=== PATIENT | female | born 1985 | race Caucasian/White ===

== ENCOUNTER 2016-05-26 10:47 | Emergency (ER) | payer OTHER ==
[~2016-05-26] VITALS: Ht 162.6 cm; Wt 104.3 kg
[2016-05-26 10:53] VITALS: BP 150/75
--- NOTE | 2016-05-26 10:59 | NUR ---
Patient ambulated to bed 4 after providing a urine specimen. RN evaluating patient at bedside.
--- NOTE | 2016-05-26 11:04 | NUR ---
PATIENT PRESENTS TO ED DUE TO BURNING, FREQUENCY, RETENTION, SINCE THIS AM. HX HYPOTHYROIDISM. DENIES DIARRHEA, BUT WITH VOMITTING AND NAUSEA WITH BACK PAIND. SKIN IS PINK/WARM/DRY; AAOX4 WITH EVEN AND STEADY GAIT; LUNGS CLEAR BL; HR EVEN AND REGULAR; PT DENIES ANY FEVER, CP, SOB, OR COUGH AT THIS TIME; PATIENT STATES PAIN OF 9/10 AT THIS TIME; PATIENT POSITIONED FOR COMFORT; HOB ELEVATED; BEDRAILS UP X2; BED DOWN. ER MD MADE AWARE OF PT STATUS.
--- NOTE | 2016-05-26 11:09 | NUR ---
DR. DOUGLAS AT BEDSIDE AND RELAYED RESULT OF URINE DIPSTICK AND PREG
[2016-05-26] MEDS ORDERED: NACL 0.9% 1,000 ML IV SCH (11:11)
[2016-05-26] MEDS ORDERED: ONDANSETRON 4 MG/2 ML VIAL IVP ONE (11:15)
--- NOTE | 2016-05-26 11:40 | NUR ---
PT REFUSED ZOAN CLAIMED I HAD HEADACHE BEFORE WHEN I TOOK THAT , DR. DOUGLAS AWARE, PT AAO, IVF ONGOING
[2016-05-26] MEDS ORDERED: cefTRIAXone 2,000 MG in DEXTROSE 5% 100 ML IV ONE (12:00)
[2016-05-26] MEDS ORDERED: cefTRIAXone 2,000 MG VIAL ONE (12:07)
--- NOTE | 2016-05-26 12:10 | NUR ---
PT AAO, STARTED ON ROCEPHIN IVF WELL TOLERATED.
--- NOTE | 2016-05-26 12:39 | NUR ---
DR. DOUGLAS AWARE OF THE POTASSIUM LEVEL , NO ORDER, SAID ALSO MAY D/C PT AFTER THE ROCEPHIN ADMINISTRATION.
--- NOTE | 2016-05-26 13:17 | NUR ---
Patient discharged with v/s stable. Written and verbal after care instructions given and explained. Patient alert, oriented and verbalized understanding of instructions. Ambulatory with steady gait. All questions addressed prior to discharge. ID band removed. Patient advised to follow up with PMD. Rx of KEFLEX AND TYLENOL given. Patient educated on indication of medication including possible reaction and side effects. Opportunity to ask questions provided and answered.ENCOURAGED FLUID INTAKE AND PT AGREED WITH IT.
[2016-05-26 13:18] VITALS: BP 145/91
== END 2016-05-26 13:17 | disposition home or self-care (01) ==
LOC: MED 10:47
DX: N39.0 Urinary tract infection, site not specified (principal); R03.0 Elevated blood-pressure reading, without diagnosis of hypertension; E03.9 Hypothyroidism, unspecified
CPT/HCPCS: 36415; 80053; 81002; 81025; 85025; 87040; 96365; 99285; J0696; J2405; J7030

== ENCOUNTER 2016-12-25 11:28 | Emergency (ER) | payer OTHER ==
[~2016-12-25] VITALS: Ht 162.6 cm; Wt 90.7 kg
[2016-12-25 12:00] VITALS: BP 134/82
--- NOTE | 2016-12-25 12:15 | NUR ---
PATIENT LEFT WITHOUT BEING SEEN BY DR. SYED. NO FURTHER CARE PROVIDED FOR PATIENT.
== END 2016-12-25 12:15 | disposition left against medical advice (07) ==
LOC: MED 11:28
DX: M79.606 Pain in leg, unspecified (principal); Z53.21 Procedure and treatment not carried out due to patient leaving prior to being seen by health care provider

== ENCOUNTER 2016-12-26 10:40 | Emergency (ER) | payer OTHER ==
[~2016-12-26] VITALS: Ht 162.6 cm; Wt 90.7 kg
[2016-12-26 10:50] VITALS: BP 132/79
--- NOTE | 2016-12-26 10:53 | NUR ---
Note undone in EDM - 12/26/16 at 1113 by [email or web address] PT REFERRED TO ER PER PCP FOR EVALUATION OF RIGHT LEG PAIN, HX : R/O DVT, HYPOTHYROIDISM.DENIES N/V/D; SKIN IS PINK/WARM/DRY; AAOX4 WITH EVEN AND STEADY GAIT; LUNGS CLEAR BL; PT DENIES ANY FEVER, CP, SOB, OR COUGH AT THIS TIME; PATIENT STATES PAIN OF 6/10 AT THIS TIME; PATIENT POSITIONED FOR COMFORT; HOB ELEVATED; BEDRAILS UP X2; BED DOWN. ER MD MADE AWARE OF PT STATUS.
--- NOTE | 2016-12-26 10:53 | NUR ---
PT REFERRED TO ER PER PCP FOR EVALUATION OF RIGHT LEG PAIN, R/O DVT. HX HYPOTHYROIDISM. PT STATES PAIN RIGHT GROIN X 2 MO AND PAIN RADIATES TO RIGHT LOWER LEG X 2 DAYS . DENIES N/V/D; SKIN IS PINK/WARM/DRY; AAOX4 WITH EVEN AND STEADY GAIT; LUNGS CLEAR BL; HR EVEN AND REGULAR; PT DENIES ANY FEVER, CP, SOB, OR COUGH AT THIS TIME; PATIENT STATES SHARP PAIN OF 6/10 AT THIS TIME; VSS; PATIENT POSITIONED FOR COMFORT; HOB ELEVATED; BEDRAILS UP X2; BED DOWN. ER MD MADE AWARE OF PT STATUS. Addendum: 12/26/16 at 1113 by [email or web address] AT BEDSIDE. Addendum: 12/26/16 at 1140 by [email or web address] PT STS R BACK PAIN & HAD TWICE PERIODS THIS MONTH.
--- NOTE | 2016-12-26 10:55 | NUR ---
Patient ambulated to bed 3. RN evaluating patient at bedside.
--- NOTE | 2016-12-26 11:20 | NUR ---
Maria Ines white in [facility] - 12/26/16 at 1130 by [email or web address] Patient being erevaluated by DR LEWIS at bedside.
--- NOTE | 2016-12-26 11:39 | NUR ---
Patient being evaluated by DR DECKER at bedside.
--- NOTE | 2016-12-26 12:08 | NUR ---
EKG AT BEDSIDE.
--- NOTE | 2016-12-26 12:12 | NUR ---
PT TAKEN TO X RAY VIA W/C, ACCOMPANIED BY ORDER CHECKER.
--- NOTE | 2016-12-26 12:30 | NUR ---
Patient appears to be resting comfortably in bed. Vital Signs within normal limits. Respirations even and unlabored.WILL CONTINUE TO MONITOR.
[2016-12-26 13:42] VITALS: BP 125/67
--- NOTE | 2016-12-26 13:42 | NUR ---
Patient discharged with v/s stable. Written and verbal after care instructions given and explained. Patient verbalized understanding. Ambulatory with steady gait. All questions addressed prior to discharge. Advised to follow up with PMD.
== END 2016-12-26 13:42 | disposition home or self-care (01) ==
LOC: MED 10:40
DX: M54.9 Dorsalgia, unspecified (principal); R10.30 Lower abdominal pain, unspecified; R03.0 Elevated blood-pressure reading, without diagnosis of hypertension; E03.9 Hypothyroidism, unspecified
CPT/HCPCS: 72170; 73502; 93005; 93971; 99284; Q0092; 81002; 81025

== ENCOUNTER 2017-02-01 01:05 | Emergency (ER) | payer OTHER ==
[~2017-02-01] VITALS: Ht 165.1 cm; Wt 90.7 kg
[2017-02-01 01:12] VITALS: BP 142/80
[2017-02-01] MEDS ORDERED: TRAM50TA1 PO (01:23)
[2017-02-01] MEDS ORDERED: LEVO0.2T19 PO (01:23)
[2017-02-01] MEDS ORDERED: ONDA4TAB PO (01:23)
[2017-02-01] MEDS ORDERED: OMEP20TC12 PO (01:23)
--- NOTE | 2017-02-01 01:28 | NUR ---
PT TAKEN TO BED 11.
--- NOTE | 2017-02-01 01:40 | NUR ---
DR SHARP AT BED SIDE.
--- NOTE | 2017-02-01 01:40 | NUR ---
Patient being evaluated by Dr. Márquez at bedside.
[2017-02-01] MEDS ORDERED: NACL 0.9% 1,000 ML IV ONE (01:45)
[2017-02-01] MEDS ORDERED: PROMETHAZINE 25 MG/ML VIAL IVP ONE (01:45)
--- NOTE | 2017-02-01 01:47 | NUR ---
PATIENT PRESENTS TO ED WITH C/O VOMITING AND CHEST PAIN X1 DAY . PMH , THYROID PROBLEM, GALLSTONES, AND ULCER. PT STATES SYMPTOMS STARTED AFTER EATING AT 1700 YESTERDAY . PT TOOK TRAMADOL FOR PAIN. DENIES NAUSEA AT THIS TIME AND STATES HAS BEEN 'THROWING UP EVEYR 7-10 MIN SINCE 5PM YESTERDAY" BS ACTIVE IN ALL 4 Q AND ABDOMEN IS SOFT AND NON TENDER; SKIN IS PINK/WARM/DRY; AAOX4 WITH EVEN AND STEADY GAIT; LUNGS CLEAR BL; HR EVEN AND REGULAR; PT DENIES ANY FEVER,SOB, OR COUGH AT THIS TIME; PATIENT STATES CHEST PAIN OF 7/10 AT THIS TIME AND RADIATES TO THE BACK AND FEELS HEAVY; VSS; PATIENT POSITIONED FOR COMFORT; HOB ELEVATED; BEDRAILS UP X2; BED DOWN. ER MD MADE AWARE OF PT STATUS.
[2017-02-01 01:58] LABS: BASOPHILS # (AUTO) 0.3 K/uL (0.00-0.22); BASOPHILS % (AUTO) 2.6 % (0.0-2.0); EOSINOPHILS # (AUTO) 0.2 K/uL (0-0.4); EOSINOPHILS % (AUTO) 1.5 % (0.0-4.0); HEMATOCRIT 37.6 % (36-48); HEMOGLOBIN 12.5 g/dL (12.0-16.0); LYMPHOCYTES # (AUTO) 1.4 K/uL (2.5-16.5); MEAN CORPUSCULAR HEMOGLOBIN 27 pg (27-31); MEAN CORPUSCULAR HGB CONC 33 g/dL (33-37); MEAN CORPUSCULAR VOLUME 80 fL (80-94); MONOCYTES # (AUTO) 0.1 K/uL (0.8-1.0); MONOCYTES % (AUTO) 1.3 % (1.7-9.3); NEUTROPHILS # (AUTO) 9.3 K/uL (1.8-7.7); NEUTROPHILS % (AUTO) 82.6 % (42.2-75.2); PLATELET COUNT (AUTO) 231 K/uL (140-450); RED BLOOD CELL COUNT(AUTO) 4.72 MIL/uL (4.20-5.40); RED CELL DISTRIBUTION WIDTH 13.9 % (11.6-13.7); WHITE BLOOD COUNT (AUTO) 11.3 K/uL (4.8-10.8)
[2017-02-01 02:07] LABS: ANION GAP 14.7 (8-16); CREATININE 0.7 mg/dL (0.6-1.3); POTASSIUM 3.7 mmol/L (3.5-5.1)
[2017-02-01 02:13] LABS: TOTAL BILIRUBIN 0.4 mg/dL (0.0-1.0)
[2017-02-01 02:52] VITALS: BP 130/76
--- NOTE | 2017-02-01 02:54 | NUR ---
Patient discharged with v/s stable. Written and verbal after care instructions given and explained. Patient alert, oriented and verbalized understanding of instructions. Ambulatory with steady gait. All questions addressed prior to discharge. ID band removed. Patient advised to follow up with PMD. Rx of PHENERGAN given. Patient educated on indication of medication including possible reaction and side effects. Opportunity to ask questions provided and answered.
== END 2017-02-01 02:54 | disposition home or self-care (01) ==
LOC: MED 01:05
DX: R11.2 Nausea with vomiting, unspecified (principal); R07.89 Other chest pain; R10.9 Unspecified abdominal pain; Z79.899 Other long term (current) drug therapy
CPT/HCPCS: 36415; 80053; 81002; 81025; 82948; 83690; 85025; 96361; 96374; 99284; J2550; J7030; 93005

== ENCOUNTER 2017-03-14 17:55 | Emergency (ER) | payer OTHER ==
[~2017-03-14] VITALS: Ht 162.6 cm; Wt 89.8 kg
[~2017-03-14 17:55] MED LIST: LEVO0.2T19 PO; OMEP20TC12 PO; ONDA4TAB PO; TRAM50TA1 PO
[2017-03-14 17:57] VITALS: BP 123/71
--- NOTE | 2017-03-14 19:30 | NUR ---
31 Y/O F W/C/O L SHOULDER/ELBOW PAIN, X LAST NIGHT SOB X THIS AM. PT STATES HAD AN INJURY 4 YEARS AGO AND HAS BEING IN PAIN TO L ARM ON AND OFF. O2 SAT 99% RA, NO S/S OF DISTRESS NOTED. ER MD MADE AWARE.
--- NOTE | 2017-03-14 19:37 | NUR ---
PT TAKEN TO BED 6
--- NOTE | 2017-03-14 21:04 | NUR ---
Dr. Lauren evaluating patient at bedside.
[2017-03-14] MEDS ORDERED: ASPIRIN 325 MG TAB PO ONE (21:35)
[2017-03-14] MEDS ORDERED: KETOROLAC 30 MG/ML VIAL IVP ONE (21:35)
[2017-03-14] MEDS ORDERED: ALPRAZolam 0.5 MG TAB PO SCH (21:35)
[2017-03-14 22:33] LABS: BASOPHILS # (AUTO) 0.3 K/uL (0.00-0.22); BASOPHILS % (AUTO) 4.3 % (0.0-2.0); EOSINOPHILS # (AUTO) 0.2 K/uL (0-0.4); EOSINOPHILS % (AUTO) 2.1 % (0.0-4.0); HEMATOCRIT 37.5 % (36-48); HEMOGLOBIN 12.3 g/dL (12.0-16.0); LYMPHOCYTES % (AUTO) 39.7 % (20.5-51.1); MEAN CORPUSCULAR HEMOGLOBIN 26 pg (27-31); MEAN CORPUSCULAR HGB CONC 33 g/dL (33-37); MEAN CORPUSCULAR VOLUME 79 fL (80-94); MONOCYTES # (AUTO) 0.4 K/uL (0.8-1.0); MONOCYTES % (AUTO) 4.7 % (1.7-9.3); NEUTROPHILS # (AUTO) 3.6 K/uL (1.8-7.7); NEUTROPHILS % (AUTO) 49.2 % (42.2-75.2); PLATELET COUNT (AUTO) 263 K/uL (140-450); RED BLOOD CELL COUNT(AUTO) 4.76 MIL/uL (4.20-5.40); WHITE BLOOD COUNT (AUTO) 7.5 K/uL (4.8-10.8)
--- NOTE | 2017-03-14 22:37 | NUR ---
PT RESTING IN BED, NO S/S OF DISTRESS NOTED. AWATING FOR LAB RESULTS.
[2017-03-14 22:40] LABS: ANION GAP 14.3 (8-16); CARBON DIOXIDE 23.5 mmol/L (21-32); CREATININE 0.7 mg/dL (0.6-1.3); POTASSIUM 3.8 mmol/L (3.5-5.1)
[2017-03-14 22:46] LABS: ALBUMIN 3.7 g/dL (3.4-5.0); TOTAL BILIRUBIN 0.3 mg/dL (0.0-1.0)
[2017-03-14 22:52] LABS: PROTHROMBIN TIME 10.1 secs (10.8-13.4)
[2017-03-14 23:12] VITALS: BP 131/80
--- NOTE | 2017-03-14 23:12 | NUR ---
Patient discharged with v/s stable. Written and verbal after care instructions given and explained. Patient alert, oriented and verbalized understanding of instructions. Ambulatory with steady gait. All questions addressed prior to discharge. ID band removed. Patient advised to follow up with PMD OR RETURN TO ER IF CONDITION WORSENS. Rx of VISTARIL given. Patient educated on indication of medication including possible reaction and side effects. Opportunity to ask questions provided and answered.
== END 2017-03-14 23:12 | disposition home or self-care (01) ==
LOC: MED 17:55
DX: F41.0 Panic disorder [episodic paroxysmal anxiety] (principal); I10 Essential (primary) hypertension; E03.9 Hypothyroidism, unspecified; E11.9 Type 2 diabetes mellitus without complications; E78.5 Hyperlipidemia, unspecified
CPT/HCPCS: 36415; 71010; 80053; 81002; 81025; 83880; 84484; 85025; 85610; 85730; 93005; 96374; 99285; J1885

== ENCOUNTER 2017-05-02 10:39 | Emergency (ER) | payer OTHER ==
[~2017-05-02] VITALS: Ht 162.6 cm; Wt 88.0 kg
[2017-05-02 11:02] VITALS: BP 128/87
--- NOTE | 2017-05-02 11:08 | NUR ---
Patient ambulated to OF#3 a this time.
--- NOTE | 2017-05-02 11:21 | NUR ---
LEFT ELBOW PAIN SINCE LAST NIGHT; DENIES INJURY OR TRAUMA; D/T TO HAVE SURGERY TO LEFT SHOULDER D/T BROKEN BONE PT ALSO C/O HEAVY CHEST AND SOB HX: DM, HIGH CHOLESTEROL, HYPOTHYROID IBUPROFEN 800MG TAKEN AT 0100, NAPROXEN 500MG TAKEN AT 0500, TYLENOL TAKEN AT 0200 PT AAO AT BESIDE,PT CLAIMED I HAVE ALSO EPISODE OF NAUSEA AND VOMITTING
--- NOTE | 2017-05-02 11:29 | NUR ---
PT REQUESTING BS TO BE CHECK
--- NOTE | 2017-05-02 12:06 | NUR ---
DR. DECKER AT BEDSIDE
[2017-05-02] MEDS ORDERED: ONDANSETRON 4 MG ODT PO ONE (12:15)
[2017-05-02] MEDS ORDERED: FAMOTIDINE 20 MG TAB PO ONE (12:15)
[2017-05-02] MEDS ORDERED: KETOROLAC 30 MG/ML VIAL IM ONE (12:15)
--- NOTE | 2017-05-02 12:16 | NUR ---
LEFT ARM SLING IN PLACE
[2017-05-02] MEDS ORDERED: KETOROLAC 30 MG/ML VIAL ONE (12:20)
[2017-05-02] MEDS ORDERED: FAMOTIDINE 20 MG TAB ONE (12:20)
[2017-05-02] MEDS ORDERED: ONDANSETRON 4 MG ODT ONE (12:21)
[2017-05-02 12:41] VITALS: BP 127/76
--- NOTE | 2017-05-02 12:41 | NUR ---
Patient discharged with v/s stable. Written and verbal after care instructions given and explained. Patient alert, oriented and verbalized understanding of instructions. Ambulatory with steady gait. All questions addressed prior to discharge. ID band removed. Patient advised to follow up with PMD. Rx of PEPCID,TRAMADOL AND ZOFRAN given. Patient educated on indication of medication including possible reaction and side effects. Opportunity to ask questions provided and answered.
== END 2017-05-02 12:41 | disposition home or self-care (01) ==
LOC: MED 10:39
DX: M75.102 Unspecified rotator cuff tear or rupture of left shoulder, not specified as traumatic (principal); K29.70 Gastritis, unspecified, without bleeding; I10 Essential (primary) hypertension
CPT/HCPCS: 82948; 93005; 96372; 99283; J1885; S0119

== ENCOUNTER 2017-07-23 23:45 | Emergency (ER) | payer OTHER ==
[~2017-07-23] VITALS: Ht 162.6 cm; Wt 90.5 kg
[2017-07-24 00:03] VITALS: BP 147/87
[2017-07-24] MEDS ORDERED: CYCLOBENZAPRINE 10 MG TAB PO ONE (00:25)
[2017-07-24] MEDS ORDERED: traMADol 50 MG TAB PO ONE (01:20)
[2017-07-24 01:33] LABS: BASOPHILS # (AUTO) 0.1 K/uL (0.00-0.22); BASOPHILS % (AUTO) 0.7 % (0.0-2.0); EOSINOPHILS # (AUTO) 0.2 K/uL (0-0.4); EOSINOPHILS % (AUTO) 1.9 % (0.0-4.0); HEMATOCRIT 34.3 % (36-48); HEMOGLOBIN 11.5 g/dL (12.0-16.0); LYMPHOCYTES # (AUTO) 3.7 K/uL (2.5-16.5); LYMPHOCYTES % (AUTO) 45.8 % (20.5-51.1); MEAN CORPUSCULAR HEMOGLOBIN 28 pg (27-31); MEAN CORPUSCULAR HGB CONC 34 g/dL (33-37); MEAN CORPUSCULAR VOLUME 81.7 fL (80-94); MONOCYTES # (AUTO) 0.4 K/uL (0.8-1.0); MONOCYTES % (AUTO) 5.1 % (1.7-9.3); NEUTROPHILS # (AUTO) 3.8 K/uL (1.8-7.7); NEUTROPHILS % (AUTO) 46.5 % (42.2-75.2); PLATELET COUNT (AUTO) 194 K/uL (140-450); RED CELL DISTRIBUTION WIDTH 14.6 % (11.6-13.7); WHITE BLOOD COUNT (AUTO) 8.1 K/uL (4.8-10.8)
[2017-07-24 01:42] LABS: ANION GAP 13.5 (8-16); CARBON DIOXIDE 25.3 mmol/L (21-32); CREATININE 0.6 mg/dL (0.6-1.3); POTASSIUM 3.8 mmol/L (3.5-5.1)
[2017-07-24 01:51] VITALS: BP 134/78
== END 2017-07-24 01:50 | disposition home or self-care (01) ==
LOC: MED 23:45
DX: M62.830 Muscle spasm of back (principal); E11.9 Type 2 diabetes mellitus without complications; I10 Essential (primary) hypertension
CPT/HCPCS: 36415; 80048; 81002; 81025; 83735; 85025; 99284

== ENCOUNTER 2017-09-17 02:45 | Emergency (ER) | payer OTHER ==
[~2017-09-17] VITALS: Ht 152.4 cm; Wt 89.8 kg
[2017-09-17 02:49] VITALS: BP 154/84
[2017-09-17] MEDS ORDERED: LORazepam 1 MG TAB PO ONE (03:35)
[2017-09-17 03:55] LABS: BASOPHILS % (AUTO) 0.5 % (0.0-2.0); EOSINOPHILS # (AUTO) 0.1 K/uL (0-0.4); EOSINOPHILS % (AUTO) 2.3 % (0.0-4.0); HEMATOCRIT 37.5 % (36-48); HEMOGLOBIN 12.6 g/dL (12.0-16.0); LYMPHOCYTES # (AUTO) 3.4 K/uL (2.5-16.5); MEAN CORPUSCULAR HEMOGLOBIN 28 pg (27-31); MEAN CORPUSCULAR HGB CONC 34 g/dL (33-37); MEAN CORPUSCULAR VOLUME 82.5 fL (80-94); MONOCYTES # (AUTO) 0.6 K/uL (0.8-1.0); MONOCYTES % (AUTO) 9.6 % (1.7-9.3); NEUTROPHILS # (AUTO) 1.9 K/uL (1.8-7.7); NEUTROPHILS % (AUTO) 31.6 % (42.2-75.2); PLATELET COUNT (AUTO) 214 K/uL (140-450); RED BLOOD CELL COUNT(AUTO) 4.54 MIL/uL (4.20-5.40); RED CELL DISTRIBUTION WIDTH 13.5 % (11.6-13.7)
[2017-09-17 04:07] LABS: ANION GAP 19.2 (8-16); CARBON DIOXIDE 21.3 mmol/L (21-32); CREATININE 0.7 mg/dL (0.6-1.3); POTASSIUM 3.5 mmol/L (3.5-5.1)
[2017-09-17 04:13] LABS: ALBUMIN 3.1 g/dL (3.4-5.0); TOTAL BILIRUBIN 0.1 mg/dL (0.0-1.0)
[2017-09-17 04:21] LABS: CREATINE KINASE MB 0.5 ng/mL (0-3.6)
[2017-09-17 05:52] VITALS: BP 143/82
== END 2017-09-17 05:52 | disposition home or self-care (01) ==
LOC: MED 02:45
DX: R06.00 Dyspnea, unspecified (principal); R42 Dizziness and giddiness; R50.9 Fever, unspecified
CPT/HCPCS: 36415; 71045; 80053; 81002; 81025; 82550; 82553; 83690; 84484; 85025; 85379; 93005; 99285

== ENCOUNTER 2017-12-27 03:15 | Emergency (ER) | payer OTHER ==
[~2017-12-27] VITALS: Ht 162.6 cm; Wt 90.7 kg
[2017-12-27 03:23] VITALS: BP 134/83
--- NOTE | 2017-12-27 03:23 | NUR ---
TO BED # 8 AMBULATORY, REPORT GIVEN TO ULYSSES KING
--- NOTE | 2017-12-27 03:25 | NUR ---
32 Y/O F PRESENTS W/C/O RT SHOULDER/NECK PAIN X 5 DAYS. PT STATES SHE WAS SEEN IN URGENT CARE 5 DAYS AGO AND GIVEN PERSCRIPTIONS BUT IT IS NOT HELPING. PT DENIES ANY TRUAMA OR INJURY. FULL ROM. NO OBVIOUS DEFORMATIES NOTED.PT DENIES N/V/D; SKIN IS INTACT, PINK/WARM/DRY; AAOX4, PERRL, WITH EVEN AND STEADY GAIT; LUNGS CLEAR BL, BREATHING UNLABORED; HR EVEN AND REGULAR, BL PERIPHERAL PULSES PRESENT; BS ACTIVE X4, NO TENDERNESS TO PALPATION, NO HEPATOSPLENOMEGALLY PALPATED, RESONANT TO PERCUSSION; PT DENIES ANY FEVER, CP, SOB, OR COUGH AT THIS TIME; PT STATES 9/10 PAIN AT THIS TIME; VSS; PATIENT POSITIONED FOR COMFORT; HOB ELEVATED; BEDRAILS UP X2; BED DOWN. ER MD MADE AWARE OF STATUS
[2017-12-27] MEDS ORDERED: KETOROLAC 60 MG/2 ML VIAL IM ONE (03:30)
[2017-12-27] MEDS ORDERED: DIAZEPAM 5 MG TAB PO ONE (03:30)
--- NOTE | 2017-12-27 03:45 | NUR ---
DR. SHARP AT BEDSIDE EVALUATING
[2017-12-27 04:10] VITALS: BP 123/71
--- NOTE | 2017-12-27 04:10 | NUR ---
Patient discharged with v/s stable. Written and verbal after care instructions given and explained. Patient alert, oriented and verbalized understanding of instructions. Ambulatory with steady gait. All questions addressed prior to discharge. ID band removed. Patient advised to follow up with PMD. Rx of [place], Valium, and Motrin given. Patient educated on indication of medication including possible reaction and side effects. Opportunity to ask questions provided and answered.
== END 2017-12-27 04:10 | disposition home or self-care (01) ==
LOC: MED 03:15
DX: M54.9 Dorsalgia, unspecified (principal); M54.2 Cervicalgia; M25.511 Pain in right shoulder; I10 Essential (primary) hypertension; E03.9 Hypothyroidism, unspecified; Z79.899 Other long term (current) drug therapy; Z90.49 Acquired absence of other specified parts of digestive tract
CPT/HCPCS: 96372; 99283; J1885

== ENCOUNTER 2018-03-14 19:05 | Emergency (ER) | payer OTHER ==
[~2018-03-14] VITALS: Ht 162.6 cm; Wt 98.9 kg
[2018-03-14 19:12] VITALS: BP 151/99
[2018-03-14] MEDS ORDERED: LISI10TA11 PO (19:15)
--- NOTE | 2018-03-14 19:17 | NUR ---
Patient ambulated to bed 4 with family after providing a urine specimen. RN evaluating patient at bedside.
--- NOTE | 2018-03-14 19:18 | NUR ---
Dr. Zayas evaluating patient at bedside.
--- NOTE | 2018-03-14 19:25 | NUR ---
32 yo FEMALE COMES TO ER FOR C/O NECK PAIN AND LOWER BACK PAIN WELL BLOOD IN URINE. PT STATES NECK PAIN STARTED THIS AFTERNOON, PT STATES, "IT FEELS STIFF AND TIGHT" PT ALSO C/O LOWER BACK SPASMS INTERMITTENTLY. PT ALSO STATES SHE HAS SMALL AMOUNTS OF BLOOD IN URINE. PT AAOX4, ABLE TO AMB @ BEDSIDE, DENIES NUMBNESS/TINGLING TO EXTREMITIES. PT DENIES DIZZINESS/ VERTIGO @ THIS TIME. ACTIVE WISAM SOUNDS, PT CONTINENT, VOIDING, DENIES PAIN UPON URINATION. LMP 01/20/18. NO S/S OF ACUTE DISTRESS NOTED. WILL UPDATE ER MD. PMH: HTN, PRE DM NKA
--- NOTE | 2018-03-14 19:31 | NUR ---
PT SENT TO CT WITH TECH AAOX4
[2018-03-14] MEDS ORDERED: CYCLOBENZAPRINE 10 MG TAB PO ONE (19:35)
[2018-03-14] MEDS ORDERED: KETOROLAC 30 MG/ML VIAL IM ONE (19:35)
--- NOTE | 2018-03-14 19:40 | NUR ---
Patient returned from CT scan. RN re-evaluating patient at bedside.
[2018-03-14 20:10] LABS: APPEARANCE,URINE SLIGHTLY CLOUDY (CLEAR); BLOOD, URINE 1+ (NEGATIVE); COLOR,URINE YELLOW (YELLOW); UGLUCOSE NEGATIVE (NEGATIVE)
[2018-03-14 20:11] LABS: BILIRUBIN,URINE NEGATIVE (NEGATIVE); LEUKOCYTE ESTERASE ,URINE NEGATIVE (NEGATIVE); NITRITE, URINE NEGATIVE (NEGATIVE)
[2018-03-14 20:12] LABS: RBC,URINE 0-5 (RARE) /HPF (0-5); WBC,URINE NONE SEEN /HPF (0-5)
--- NOTE | 2018-03-14 20:19 | NUR ---
Dr. Zayas re-evaluating patient at bedside.
[2018-03-14 20:38] VITALS: BP 132/75
--- NOTE | 2018-03-14 20:40 | NUR ---
Patient discharged with v/s stable. Written and verbal after care instructions given and explained. Patient alert, oriented and verbalized understanding of instructions. Ambulatory with steady gait. All questions addressed prior to discharge. ID band removed. Patient advised to follow up with PMD. Rx of FLEXERIL 10MG, IBU 600MG given. Patient educated on indication of medication including possible reaction and side effects. Opportunity to ask questions provided and answered.
== END 2018-03-14 20:40 | disposition home or self-care (01) ==
LOC: MED 19:05
DX: G89.29 Other chronic pain (principal); M54.2 Cervicalgia; M54.9 Dorsalgia, unspecified; R60.0 Localized edema; I10 Essential (primary) hypertension; E03.9 Hypothyroidism, unspecified; Z79.899 Other long term (current) drug therapy
CPT/HCPCS: 74176; 81001; 81025; 96372; 99284; J1885

== ENCOUNTER 2018-06-18 | Emergency (ER) | payer OTHER ==
[~2018-06-18] VITALS: Ht 162.6 cm; Wt 97.7 kg
[~2018-06-18] MED LIST changes: +LISI10TA11 PO; -OMEP20TC12 PO; -ONDA4TAB PO; -TRAM50TA1 PO
[2018-06-18 00:45] VITALS: BP 121/83
--- NOTE | 2018-06-18 00:52 | NUR ---
PT AMBULATED TO THE RESTROOM TO GIVE U/A SPECIMEN AND BACK TO ADELA, JANESSAS
--- NOTE | 2018-06-18 01:19 | NUR ---
PT AMBULATED TO BED #5
--- NOTE | 2018-06-18 01:20 | NUR ---
PT CAME INTO ER WITH C/O PAIN ON THE LLQ OF ABDOMEN. PT STATES IT RADIATES DOWN AND TO BACK. PT ALSO HAS VAGINAL PAIN. LMP May. 11/15. PT HAS N/ NO VOMITING OR DIARRHEA, NO FEVER. PT STATED SHE HAS CRAMPING INTERMITTENTLY. MEDICAL HX-THYROID PROBLEM TAKING LEVOTHYROXINE AND HAS HTN- TAKING LISINOPRIL 25 MG DAILY. AND TAKING ZANAX FOR DEPRESSION. PT IS A/OX4. ER MD MADE AWARE OF STATUS. SAFETY PRECAUTIONS IN PLACE, BED RAILS UP X 1.
[2018-06-18] MEDS ORDERED: KETOROLAC 60 MG/2 ML VIAL IM ONE (01:50)
[2018-06-18 02:00] LABS: APPEARANCE,URINE SL CLOUDY (CLEAR); BILIRUBIN,URINE NEGATIVE (NEGATIVE); BLOOD, URINE TRACE-I (NEGATIVE); COLOR,URINE YELLOW (YELLOW); LEUKOCYTE ESTERASE ,URINE NEGATIVE (NEGATIVE); NITRITE, URINE NEGATIVE (NEGATIVE); UGLUCOSE NEGATIVE (NEGATIVE)
[2018-06-18] MEDS ORDERED: cefTRIAXone 1,000 MG in LIDOCAINE MPF 1% - 5 mL VIAL 2.1 ML IM ONE (02:55)
[2018-06-18 03:26] VITALS: BP 133/78
--- NOTE | 2018-06-18 03:26 | NUR ---
Patient discharged with v/s stable. Written and verbal after care instructions given and explained. Patient alert, oriented and verbalized understanding of instructions. Ambulatory with to car. All questions addressed prior to discharge. ID band removed. Patient advised to follow up with PMD. Rx of BACTRIM DS, MOTRIN 800 MG given. Patient educated on indication of medication including possible reaction and side effects. Opportunity to ask questions provided and answered.
== END 2018-06-18 03:29 | disposition home or self-care (01) ==
LOC: MED
DX: N39.0 Urinary tract infection, site not specified (principal); I10 Essential (primary) hypertension; E03.9 Hypothyroidism, unspecified; Z79.899 Other long term (current) drug therapy
CPT/HCPCS: 81001; 81025; 87086; 96372; 99283; J0696; J1885; J2001

== ENCOUNTER 2018-07-06 01:59 | Emergency (ER) | payer OTHER ==
[~2018-07-06] VITALS: Ht 162.6 cm; Wt 96.6 kg
[2018-07-06 02:07] VITALS: BP 139/87
--- NOTE | 2018-07-06 02:10 | NUR ---
PT BIB SELF C/O EPIGASTRIC PAIN THAT RADIATES TO CHEST AND BACK. PT STATES HER DOCTOR TOLD HER SHE HAD A POSITIVE EPIDERMIS PPD AND WAS GIVEN A CHEST X-RAY; 7/10 SHARP EPIGASTRIC PAIN THAT RADIATES TO CHEST AND BACK; PT STATES SHE HAD DYSURIA 2 DAYS AGO. DENIES N/V/D. BREATHING EQUAL AND UNLABORED. LUNG SOUNDS CLEAR BL. BOWEL SOUNDS ACTIVE X4 QUAD. PT ACTING APPROPRIATLY. SKIN WARM DRY AND INTACT. PT IN GOWN, IN BED; BED IN LOWER LOCKED POSITION. ER MD AWARE OF PT STATUS. WILL CONTINUE TO MONITOR. PMH: PRE-DM, HTN RX: LISINOPRIL W/ HYDROCHLORATHIZIDE
--- NOTE | 2018-07-06 02:13 | NUR ---
PT AMBULATED TO ER BED 04
--- NOTE | 2018-07-06 03:05 | NUR ---
LAB AT BEDSIDE.
[2018-07-06] MEDS ORDERED: KETOROLAC 60 MG/2 ML VIAL IM ONE (03:40)
[2018-07-06 03:41] LABS: BASOPHILS % (AUTO) 0.5 % (0.0-2.0); EOSINOPHILS # (AUTO) 0.2 K/uL (0-0.4); EOSINOPHILS % (AUTO) 2.9 % (0.0-4.0); HEMATOCRIT 34.6 % (36-48); HEMOGLOBIN 11.9 g/dL (12.0-16.0); LYMPHOCYTES # (AUTO) 3.1 K/uL (2.5-16.5); LYMPHOCYTES % (AUTO) 51.3 % (20.5-51.1); MEAN CORPUSCULAR HEMOGLOBIN 29 pg (27-31); MEAN CORPUSCULAR HGB CONC 34 g/dL (33-37); MEAN CORPUSCULAR VOLUME 83.1 fL (80-94); MONOCYTES # (AUTO) 0.5 K/uL (0.8-1.0); MONOCYTES % (AUTO) 8.5 % (1.7-9.3); NEUTROPHILS # (AUTO) 2.2 K/uL (1.8-7.7); PLATELET COUNT (AUTO) 226 K/uL (140-450); RED BLOOD CELL COUNT(AUTO) 4.17 MIL/uL (4.20-5.40); RED CELL DISTRIBUTION WIDTH 13.2 % (11.6-13.7)
[2018-07-06 03:51] LABS: ANION GAP 15.8 (8-16); CARBON DIOXIDE 25.3 mmol/L (21-32); CREATININE 0.7 mg/dL (0.6-1.3); POTASSIUM 3.1 mmol/L (3.5-5.1)
[2018-07-06 03:53] LABS: NEUTROPHILS % (AUTO) 36.8 % (42.2-75.2)
[2018-07-06 03:57] LABS: ALBUMIN 3.4 g/dL (3.4-5.0); TOTAL BILIRUBIN 0.1 mg/dL (0.0-1.0)
[2018-07-06 04:11] LABS: BILIRUBIN,URINE NEGATIVE (NEGATIVE); BLOOD, URINE 3+ (NEGATIVE); COLOR,URINE YELLOW (YELLOW); LEUKOCYTE ESTERASE ,URINE NEGATIVE (NEGATIVE); NITRITE, URINE NEGATIVE (NEGATIVE); PH,URINE 5.5 (5.0-9.0); UGLUCOSE NEGATIVE (NEGATIVE)
[2018-07-06 04:13] LABS: APPEARANCE,URINE SLIGHTLY HAZY (CLEAR)
[2018-07-06 04:21] LABS: WBC,URINE 0-5 /HPF (0-5)
--- NOTE | 2018-07-06 04:32 | NUR ---
EKG PERFORMED AT BEDSIDE. PT COVERED IN GOWN DURING PROCEDURE
--- NOTE | 2018-07-06 04:50 | NUR ---
Patient discharged with v/s stable. Patient states 3/10 pain at this time, patient acting appropriatly; patient states she is ready to go home. Written and verbal after care instructions given and explained. Patient alert, oriented and verbalized understanding of instructions. Ambulatory with steady gait. All questions addressed prior to discharge. ID band removed. Patient advised to follow up with PMD. Rx of Pepcid given. Patient educated on indication of medication including possible reaction and side effects. Opportunity to ask questions provided and answered.
[2018-07-06 05:00] VITALS: BP 125/78
== END 2018-07-06 04:50 | disposition home or self-care (01) ==
LOC: MED 01:59
DX: K21.9 Gastro-esophageal reflux disease without esophagitis (principal); R30.0 Dysuria; E11.9 Type 2 diabetes mellitus without complications; I10 Essential (primary) hypertension; Z79.899 Other long term (current) drug therapy
CPT/HCPCS: 36415; 80053; 81001; 81025; 84484; 85025; 93005; 96372; 99284; J1885

== ENCOUNTER 2018-09-06 13:31 | Emergency (ER) | payer OTHER ==
[~2018-09-06] VITALS: Ht 162.6 cm; Wt 97.6 kg
[2018-09-06 13:34] VITALS: BP 145/121
--- NOTE | 2018-09-06 13:44 | NUR ---
32 Y FEMALE BIB FAMILY C/O BACK PAIN X1 WEEK. PT REPORTS CONSTANT SHARP BACK PAIN IN UPPER RT BACK AT 9/10. PT DENIES TRAUMA. -REDNESS, -SWELLING. RECIEVED FLEXORIL, IBUPROFEN, AND NORCO FROM [facility], BUT STATES MEDICINE HAS NOT RELIEVED PAIN. VSS AT THIS TIME. AA0X4. BED IS DOWN, LOCKED, BED RAILX 1, ERMD TO SEE PT. MEDHX:LT SHOULDER SURGERY, HYPOTHYROIDISM, HTN, HLD
--- NOTE | 2018-09-06 14:20 | NUR ---
DR MATTHEWS AT PT BEDSIDE
[2018-09-06] MEDS ORDERED: DEXAMETHASONE 10 MG/ML VIAL IM ONE (14:25)
[2018-09-06] MEDS ORDERED: KETOROLAC 60 MG/2 ML VIAL IM ONE (14:25)
--- NOTE | 2018-09-06 14:35 | NUR ---
TORADOL AND DECADRON ADMINISTERED IM
--- NOTE | 2018-09-06 15:03 | NUR ---
SLING PLACED BY ELIAZAR EMT, + RT RADIAL PULSE
--- NOTE | 2018-09-06 15:04 | NUR ---
PAIN 5/10 AT THIS TIME.
[2018-09-06 15:05] VITALS: BP 152/119
--- NOTE | 2018-09-06 15:05 | NUR ---
Patient discharged with v/s stable. Written and verbal after care instructions given and explained. Patient alert, oriented and verbalized understanding of instructions. Ambulatory with steady gait. All questions addressed prior to discharge. ID band removed. Patient advised to follow up with PMD. Rx of MEDROL DOSEPAK given. Patient educated on indication of medication including possible reaction and side effects. Opportunity to ask questions provided and answered. PT INSTRUCTED TO APPLY ICE TO AFFECTED AREA.
== END 2018-09-06 15:05 | disposition home or self-care (01) ==
LOC: MED 13:31
DX: S29.012A Strain of muscle and tendon of back wall of thorax, initial encounter (principal); E11.9 Type 2 diabetes mellitus without complications; I10 Essential (primary) hypertension; E03.9 Hypothyroidism, unspecified; E78.5 Hyperlipidemia, unspecified; Z79.899 Other long term (current) drug therapy; X58.XXXA Exposure to other specified factors, initial encounter; Y93.89 Activity, other specified; Y92.89 Other specified places as the place of occurrence of the external cause; Y99.8 Other external cause status
CPT/HCPCS: 71045; 96372; 99283; J1100; J1885

== ENCOUNTER 2018-11-08 13:56 | Emergency (ER) | payer OTHER ==
[~2018-11-08] VITALS: Ht 162.6 cm; Wt 104.3 kg
[2018-11-08 14:09] VITALS: BP 127/74
[2018-11-08 15:23] VITALS: BP 121/68
== END 2018-11-08 15:23 | disposition home or self-care (01) ==
LOC: MED 13:56
DX: R05 Cough (principal); R09.81 Nasal congestion; J02.9 Acute pharyngitis, unspecified; I10 Essential (primary) hypertension; E11.9 Type 2 diabetes mellitus without complications; E03.9 Hypothyroidism, unspecified; Z79.899 Other long term (current) drug therapy
CPT/HCPCS: 71045; 81002; 81025; 99283; Q0092

== ENCOUNTER 2019-05-28 09:54 | Emergency (ER) | payer OTHER ==
[~2019-05-28] VITALS: Ht 162.6 cm; Wt 93.4 kg
--- NOTE | 2019-05-28 10:00 | NUR ---
Patient amublated to ER bed 4
--- NOTE | 2019-05-28 10:04 | NUR ---
33 y/o F presents to ER c/o right flank pain since noon. Pain radiates to left leg. Pain level 6/10. A&O x4. No meds taken at home for pain. Vital Signs Stable. BS197 Allergies: NKA Med hx: DM, Thyroid, HTN, HDL
[2019-05-28 10:06] VITALS: BP 155/78
--- NOTE | 2019-05-28 11:00 | NUR ---
Dr. Márquez evaluating pt at bedside.
[2019-05-28] MEDS ORDERED: ONDANSETRON 4 MG ODT PO ONE (11:05)
[2019-05-28] MEDS ORDERED: KETOROLAC 60 MG/2 ML VIAL IM ONE (11:05)
[2019-05-28 12:06] VITALS: BP 155/78
--- NOTE | 2019-05-28 12:06 | NUR ---
Patient discharged with v/s stable. Written and verbal after care instructions given and explained. Patient alert, oriented and verbalized understanding of instructions. Ambulatory with steady gait. All questions addressed prior to discharge. ID band removed. Patient advised to follow up with PMD. Rx of Motrin 800mg and Zofran 8mg was given. Patient educated on indication of medication including possible reaction and side effects. Opportunity to ask questions provided and answered.
== END 2019-05-28 12:06 | disposition home or self-care (01) ==
LOC: MED 09:54
DX: R10.9 Unspecified abdominal pain (principal); R11.0 Nausea; E11.9 Type 2 diabetes mellitus without complications; I10 Essential (primary) hypertension; E07.9 Disorder of thyroid, unspecified; R05 Cough; R42 Dizziness and giddiness; Z79.899 Other long term (current) drug therapy; Z98.890 Other specified postprocedural states
CPT/HCPCS: 81002; 81025; 96372; 99283; J1885; Q0162

== ENCOUNTER 2019-09-03 21:18 | Emergency (ER) | payer OTHER ==
[~2019-09-03] VITALS: Ht 162.6 cm; Wt 94.3 kg
[2019-09-03 21:26] VITALS: BP 161/104
--- NOTE | 2019-09-03 21:35 | NUR ---
PT AMBULATED TO BATHROOM, STEADY GAIT.
--- NOTE | 2019-09-03 21:37 | NUR ---
PT PROVIDED UA. PT AMBULATED TO BED 4 WITH STEADY GAIT.
--- NOTE | 2019-09-03 21:38 | NUR ---
DR. BANUELOS AT [facility].
--- NOTE | 2019-09-03 21:42 | NUR ---
UA TAKEN TO LAB AND GIVEN TO [employer]SP[employer]ATION ENGINEER.
[2019-09-03] MEDS ORDERED: CYCLOBENZAPRINE 10 MG TAB PO ONE (21:45)
[2019-09-03] MEDS ORDERED: KETOROLAC 30 MG/ML VIAL IM ONE (21:45)
[2019-09-03 21:46] LABS: APPEARANCE,URINE CLEAR (CLEAR); BILIRUBIN,URINE NEGATIVE (NEGATIVE); BLOOD, URINE TRACE-I (NEGATIVE); COLOR,URINE YELLOW (YELLOW); LEUKOCYTE ESTERASE ,URINE NEGATIVE (NEGATIVE); NITRITE, URINE NEGATIVE (NEGATIVE); PH,URINE 6.5 (5.0-9.0); UGLUCOSE NEGATIVE (NEGATIVE)
[2019-09-03] MEDS ORDERED: IBUPROFEN 800 MG TAB PO ONE (21:50)
--- NOTE | 2019-09-03 21:50 | NUR ---
33 Y/O F PRESENTS TO ED C/O RT LOWER BACK PAIN RADIATING TO RT SIDE OF ABD X 1 MONTH. PT STATES PAIN IS INTERMITTENT BUT STARTED TO HAVE BURNING DURING URINATION X1 DAY. PT STATES HER PRIMARY CARE PRESCRIBED HER GABAPENTIN A MONTH AGO BUT DOESN'T HELP. SHE ALSO STATES SHE IS TAKING IBUPROFEN, WHICH HELPS WITH PAIN FOR A COUPLE HOURS AND THEN PAIN STARTS UP AGAIN. PT ALSO STATES HAVING CLOUDY URINE X 2 WEEKS BUT DENIES STRONG ODOR SMELL. ABD SOFT AND NON DISTENDED. RR EVEN AND UNLABORED. LUNG SOUNDS CLEAR UPON AUSCULATION. BED IN LOWEST POSITION, SIDE RAIL UP X1. WILL CONTINUE TO MONITOR. ALLERGIES: DENIES MHX: HTN AND HYPOTHYROIDISM.
--- NOTE | 2019-09-03 21:52 | NUR ---
PT REFUSED TORADOL AND FLEXERIL TO BE TAKEN. DR. BANUELOS MADE AWARE.
--- NOTE | 2019-09-03 22:13 | NUR ---
PT TAKEN TO [facility] VIA WHEELCHAIR.
--- NOTE | 2019-09-03 22:25 | NUR ---
PT BACK FROM RAD VIA WHEELCHAIR.
[2019-09-03 22:50] VITALS: BP 150/87
--- NOTE | 2019-09-03 22:50 | NUR ---
Patient discharged with v/s stable. Written and verbal after care instructions given and explained. Patient alert, oriented and verbalized understanding of instructions. Ambulatory with steady gait. All questions addressed prior to discharge. ID band removed. Patient advised to follow up with PMD. Rx of FLEXERIL AND IBUPROFEN given. Patient educated on indication of medication including possible reaction and side effects. Opportunity to ask questions provided and answered.
== END 2019-09-03 22:50 | disposition home or self-care (01) ==
LOC: MED 21:18
DX: S39.012A Strain of muscle, fascia and tendon of lower back, initial encounter (principal); E11.9 Type 2 diabetes mellitus without complications; E07.9 Disorder of thyroid, unspecified; I10 Essential (primary) hypertension; M54.41 Lumbago with sciatica, right side; Z79.899 Other long term (current) drug therapy; Z98.890 Other specified postprocedural states; Z90.49 Acquired absence of other specified parts of digestive tract; X58.XXXA Exposure to other specified factors, initial encounter; Y93.89 Activity, other specified; Y92.89 Other specified places as the place of occurrence of the external cause; Y99.8 Other external cause status
CPT/HCPCS: 72110; 81003; 99284; J1885

== ENCOUNTER 2019-09-29 22:29 | Emergency (ER) | payer OTHER ==
[~2019-09-29] VITALS: Ht 162.6 cm; Wt 89.8 kg
[2019-09-29 22:38] VITALS: BP 117/93
[2019-09-29 23:51] LABS: BASOPHILS # (AUTO) 0.1 K/uL (0.00-0.22); BASOPHILS % (AUTO) 1.2 % (0.0-2.0); EOSINOPHILS # (AUTO) 0.1 K/uL (0-0.4); EOSINOPHILS % (AUTO) 1.2 % (0.0-4.0); HEMATOCRIT 37.6 % (36-48); HEMOGLOBIN 12.6 g/dL (12.0-16.0); LYMPHOCYTES # (AUTO) 3.6 K/uL (2.5-16.5); LYMPHOCYTES % (AUTO) 38.1 % (20.5-51.1); MEAN CORPUSCULAR HEMOGLOBIN 28 pg (27-31); MEAN CORPUSCULAR HGB CONC 34 g/dL (33-37); MONOCYTES # (AUTO) 0.6 K/uL (0.8-1.0); MONOCYTES % (AUTO) 6.2 % (1.7-9.3); NEUTROPHILS # (AUTO) 5.1 K/uL (1.8-7.7); NEUTROPHILS % (AUTO) 53.3 % (42.2-75.2); PLATELET COUNT (AUTO) 250 K/uL (140-450); RED BLOOD CELL COUNT(AUTO) 4.58 MIL/uL (4.20-5.40); WHITE BLOOD COUNT (AUTO) 9.5 K/uL (4.8-10.8)
[2019-09-30 00:13] LABS: ALBUMIN 3.8 g/dL (3.4-5.0); CARBON DIOXIDE 25.2 mmol/L (21-32); CREATININE 0.8 mg/dL (0.6-1.3); POTASSIUM 3.2 mmol/L (3.5-5.1); TOTAL BILIRUBIN 0.2 mg/dL (0.0-1.0)
[2019-09-30 00:47] LABS: FREE T4 (FREE THYROXINE) 1.03 ng/dL (0.76-1.46); THYROID STIMULATING HORMONE 12.24 uIU/mL (0.34-3.74)
[2019-09-30] MEDS ORDERED: IBUPROFEN 600 MG TAB PO ONE (01:05)
[2019-09-30 01:21] VITALS: BP 159/81
== END 2019-09-30 01:20 | disposition home or self-care (01) ==
LOC: MED 22:29
DX: R07.9 Chest pain, unspecified (principal); E87.6 Hypokalemia; E11.9 Type 2 diabetes mellitus without complications; E07.9 Disorder of thyroid, unspecified; I10 Essential (primary) hypertension; Z90.49 Acquired absence of other specified parts of digestive tract; Z98.890 Other specified postprocedural states
CPT/HCPCS: 36415; 71046; 80053; 81025; 84439; 84443; 84484; 85025; 85379; 93005; 99285

== ENCOUNTER 2020-04-02 21:39 | Emergency (ER) | payer OTHER ==
[~2020-04-02] VITALS: Ht 162.6 cm; Wt 89.8 kg
[2020-04-02 21:51] VITALS: BP 138/80
--- NOTE | 2020-04-02 21:54 | NUR ---
TO LOBBY A/W BED AMBULATORY
[2020-04-02] MEDS ORDERED: LIDOCAINE/EPI 1% 1:100000 20 ML VIAL INJ ONE (22:10)
--- NOTE | 2020-04-02 22:10 | NUR ---
SEEN AND EXAMINED BY LINDA WITH ORDERS AND CARRIED OUT
--- NOTE | 2020-04-02 22:15 | NUR ---
I&D Procedure done by Dr WOLFE. SMALL amt of bleeding noted. Wound packed with . DSD applied. Pt TOLERATED THE procedure WELL. Wound care discussed w/ patient.
[2020-04-02] MEDS ORDERED: LIDOCAINE 2% 100 MG/5 ML SYR IVP ONE (22:29)
[2020-04-02 22:40] VITALS: BP 138/80
--- NOTE | 2020-04-02 22:40 | NUR ---
Patient discharged with v/s stable. Written and verbal after care instructions given and explained. Patient alert, oriented and verbalized understanding of instructions. Ambulatory with steady gait. All questions addressed prior to discharge. ID band removed. Patient advised to follow up with PMD. Rx of BACTRIM, KEFLEX given. Patient educated on indication of medication including possible reaction and side effects. Opportunity to ask questions provided and answered.
== END 2020-04-02 22:40 | disposition home or self-care (01) ==
LOC: MED 21:39
DX: L02.214 Cutaneous abscess of groin (principal); L03.314 Cellulitis of groin; E11.9 Type 2 diabetes mellitus without complications; I10 Essential (primary) hypertension; Z86.39 Personal history of other endocrine, nutritional and metabolic disease; Z79.899 Other long term (current) drug therapy
CPT/HCPCS: 10060; 99283; J2001

== ENCOUNTER 2020-06-01 17:41 | Emergency (ER) | payer OTHER ==
[~2020-06-01] VITALS: Ht 162.6 cm; Wt 90.7 kg
[~2020-06-01 17:41] MED LIST changes: +LISI-486 PO; -LISI10TA11 PO
[2020-06-01 18:01] VITALS: BP 177/96
--- NOTE | 2020-06-01 18:34 | NUR ---
34F PMH of cholycystectomy, DM, HTN 08/15 "tightness, gaseous sensation" mid epigastric area radiating to RUQ and N/V (x4 today) x 3 days, worsens when eating. Endorses worse in the morning and at night. Reports taking pedialyte to rehydrate. Denies hematemesis, constipation and diarrhea. LBM this morning, passing gas okay. LMP . Denies fever chills SOB CP/palpatations, urinary/bowel issues at this time. A&O x3, speaks in full clear sentences, follows commands. No AMU, respirations E/U. ERICH GARCÍA bedside Pending orders Addendum: 06/01/20 at 1841 by [email or web address] Pt stated that N/V had been chronic, monthly for about 2 years
[2020-06-01] MEDS ORDERED: PANTOPRAZOLE 40 MG INJ VIAL IVP ONE (18:40)
[2020-06-01] MEDS ORDERED: ONDANSETRON 4 MG/2 ML VIAL IVP ONE (18:40)
[2020-06-01] MEDS ORDERED: MORPHINE SULFATE 2 MG/ML SYR IVP ONE (18:40)
[2020-06-01 18:58] LABS: BASOPHILS # (AUTO) 0.1 K/uL (0.00-0.22); BASOPHILS % (AUTO) 0.9 % (0.0-2.0); EOSINOPHILS # (AUTO) 0.1 K/uL (0-0.4); EOSINOPHILS % (AUTO) 0.8 % (0.0-4.0); HEMATOCRIT 37.4 % (36-48); HEMOGLOBIN 12.5 g/dL (12.0-16.0); LYMPHOCYTES # (AUTO) 3.3 K/uL (2.5-16.5); LYMPHOCYTES % (AUTO) 38.7 % (20.5-51.1); MEAN CORPUSCULAR HEMOGLOBIN 28 pg (27-31); MEAN CORPUSCULAR HGB CONC 34 g/dL (33-37); MONOCYTES # (AUTO) 0.6 K/uL (0.8-1.0); MONOCYTES % (AUTO) 6.9 % (1.7-9.3); NEUTROPHILS # (AUTO) 4.5 K/uL (1.8-7.7); NEUTROPHILS % (AUTO) 52.7 % (42.2-75.2); PLATELET COUNT (AUTO) 229 K/uL (140-450); RED BLOOD CELL COUNT(AUTO) 4.55 MIL/uL (4.20-5.40); RED CELL DISTRIBUTION WIDTH 14.1 % (11.6-13.7); WHITE BLOOD COUNT (AUTO) 8.5 K/uL (4.8-10.8)
--- NOTE | 2020-06-01 19:14 | NUR ---
Handoff given to FERNANDO Bautista
[2020-06-01 19:17] LABS: ALBUMIN 3.9 g/dL (3.4-5.0); ANION GAP 14.3 (8-16); CARBON DIOXIDE 26.4 mmol/L (21-32); CREATININE 0.6 mg/dL (0.6-1.3); POTASSIUM 3.7 mmol/L (3.5-5.1); TOTAL BILIRUBIN 0.2 mg/dL (0.0-1.0)
[2020-06-01 19:36] LABS: HCG,QUANTITATIVE < 1 mIU/mL (0-6)
[2020-06-01] MEDS ORDERED: NACL 0.9% 1,000 ML IV ONE (20:10)
[2020-06-01] MEDS ORDERED: NACL 0.9% 2,000 ML IV ONE (20:10)
--- NOTE | 2020-06-01 20:29 | NUR ---
20g IV started in LAC. Pt signed consent for CT scan w/contrast. Taken to CT now.
--- NOTE | 2020-06-01 20:29 | NUR ---
PT TAKEN TO CT
[2020-06-01 21:14] LABS: APPEARANCE,URINE CLEAR (CLEAR); BILIRUBIN,URINE NEGATIVE (NEGATIVE); BLOOD, URINE NEGATIVE (NEGATIVE); COLOR,URINE YELLOW (YELLOW); LEUKOCYTE ESTERASE ,URINE NEGATIVE (NEGATIVE); NITRITE, URINE NEGATIVE (NEGATIVE); UGLUCOSE NEGATIVE (NEGATIVE)
[2020-06-01] MEDS ORDERED: ALUMINUM HYD/MAG/SIMETHICONE 30 ML, DICYCLOMINE HCL LIQUID 20 MG, LIDOCAINE VISCOUS 2% ... PO ONE ×3 (21:55)
[2020-06-01] MEDS ORDERED: ACETAMINOPHEN EXTRA STRENGTH 500 MG TAB PO ONE (21:55)
[2020-06-01] MEDS ORDERED: DICYCLOMINE 20 MG/2 ML VIAL IM ONE (21:55)
[2020-06-01] MEDS ORDERED: LIDOCAINE VISCOUS 2% 20 ML UDC ONE (22:50)
[2020-06-01] MEDS ORDERED: ALUMINUM HYD/MAG/SIMETHICONE 30 ML UDC ONE (22:50)
[2020-06-01] MEDS ORDERED: DICYCLOMINE HCL LIQUID 10 MG/5 ML UDC ONE (22:51)
[2020-06-01 23:21] VITALS: BP 121/71
--- NOTE | 2020-06-01 23:22 | NUR ---
Patient discharged with v/s stable. Written and verbal after care instructions given and explained. Patient alert, oriented and verbalized understanding of instructions. Ambulatory with steady gait. All questions addressed prior to discharge. ID band removed. Patient advised to follow up with PMD. Rx of protonix and zofran given. Patient educated on indication of medication including possible reaction and side effects. Opportunity to ask questions provided and answered.
--- NOTE | 2020-06-02 20:25 | NUR ---
LATE ENTRY--- 0.9% NS INFUSION ENDED AT 2114
== END 2020-06-01 23:22 | disposition home or self-care (01) ==
LOC: MED 17:41
DX: R10.13 Epigastric pain (principal); R11.2 Nausea with vomiting, unspecified; E11.9 Type 2 diabetes mellitus without complications; I10 Essential (primary) hypertension; E07.9 Disorder of thyroid, unspecified; Z79.899 Other long term (current) drug therapy; Z90.49 Acquired absence of other specified parts of digestive tract; Z20.822 Contact with and (suspected) exposure to COVID-19
CPT/HCPCS: 36415; 74177; 80053; 81003; 81025; 83605; 83690; 84484; 84702; 85025; 87426; 93005; 96361; 96372; 96374; 96375; 99285; C9113; J0500; J2405; J7030; Q9967; J2270

== ENCOUNTER 2020-08-20 21:23 | Emergency (ER) | payer OTHER ==
[~2020-08-20] VITALS: Ht 162.6 cm; Wt 90.7 kg
--- NOTE | 2020-08-20 21:30 | NUR ---
PT TAKEN TO BED 4
--- NOTE | 2020-08-20 21:42 | NUR ---
Dr. Heard examining patient.
[2020-08-20] MEDS ORDERED: IBUPROFEN 600 MG TAB PO ONE (21:50)
--- NOTE | 2020-08-20 21:50 | NUR ---
PATIENT PRESENTS TO ED WITH COMPLAINTS OF LOW MID-BACK PAIN SINCE YESTERDAY. PT STATES SHE WAS "PULLING SOMETHING HEAVY". DENIES N/V/D; SKIN IS PINK/WARM/DRY; AAOX4 WITH EVEN AND STEADY GAIT; HR EVEN AND REGULAR; PT DENIES ANY FEVER, CP, SOB, OR COUGH AT THIS TIME; VSS; ER MD MADE AWARE OF PT STATUS.
[2020-08-20 21:51] VITALS: BP 156/84
[2020-08-20] MEDS ORDERED: IBUP-2213 PO (22:08)
[2020-08-20] MEDS ORDERED: LID5T TP (22:08)
[2020-08-20 22:40] VITALS: BP 156/84
--- NOTE | 2020-08-20 22:40 | NUR ---
Patient discharged with v/s stable. Written and verbal after care instructions given and explained. Patient alert, oriented and verbalized understanding of instructions. Ambulatory with steady gait. All questions addressed prior to discharge. ID band removed. Patient advised to follow up with PMD. Rx of IBUPROFEN AND LIDODERM PATCH given. Patient educated on indication of medication including possible reaction and side effects. Opportunity to ask questions provided and answered.
== END 2020-08-20 22:40 | disposition home or self-care (01) ==
LOC: MED 21:23
DX: M54.9 Dorsalgia, unspecified (principal); E11.9 Type 2 diabetes mellitus without complications; I10 Essential (primary) hypertension; E03.9 Hypothyroidism, unspecified
CPT/HCPCS: 99282

== ENCOUNTER 2020-12-01 17:31 | Emergency (ER) | payer OTHER ==
[~2020-12-01] VITALS: Ht 162.6 cm; Wt 95.3 kg
[~2020-12-01 17:31] MED LIST changes: +IBUP-2213 PO; +LID5T TP
[2020-12-01 17:41] VITALS: BP 133/73
[2020-12-01] MEDS ORDERED: KETOROLAC 30 MG/ML VIAL IM ONE (18:00)
[2020-12-01] MEDS ORDERED: CYCLOBENZAPRINE 10 MG TAB PO ONE (18:00)
--- NOTE | 2020-12-01 18:00 | NUR ---
34/F presents to ED with c/o left sided chest tightness and sob since this morning. Patient states the symptoms worsened throughout the day and denies experiencing similar symptoms before. Denies fever, cough, reports taking Ibuprofen and lidoderm patch with mild relief. Denies any recent trauma or injury.
--- NOTE | 2020-12-01 18:02 | NUR ---
PT AMBULATED TO BED 5
[2020-12-01 18:15] LABS: BASOPHILS # (AUTO) 0.1 K/uL (0.00-0.22); BASOPHILS % (AUTO) 0.7 % (0.0-2.0); EOSINOPHILS # (AUTO) 0.1 K/uL (0-0.4); EOSINOPHILS % (AUTO) 1.4 % (0.0-4.0); HEMATOCRIT 35.1 % (36-48); HEMOGLOBIN 11.5 g/dL (12.0-16.0); LYMPHOCYTES # (AUTO) 4.1 K/uL (2.5-16.5); LYMPHOCYTES % (AUTO) 40.8 % (20.5-51.1); MEAN CORPUSCULAR HEMOGLOBIN 26 pg (27-31); MEAN CORPUSCULAR HGB CONC 33 g/dL (33-37); MEAN CORPUSCULAR VOLUME 78.1 fL (80-94); MONOCYTES # (AUTO) 0.6 K/uL (0.8-1.0); NEUTROPHILS # (AUTO) 5.2 K/uL (1.8-7.7); NEUTROPHILS % (AUTO) 51.1 % (42.2-75.2); PLATELET COUNT (AUTO) 313 K/uL (140-450); RED BLOOD CELL COUNT(AUTO) 4.49 MIL/uL (4.20-5.40); RED CELL DISTRIBUTION WIDTH 14.3 % (11.6-13.7); WHITE BLOOD COUNT (AUTO) 10.1 K/uL (4.8-10.8)
[2020-12-01 18:46] LABS: ALBUMIN 3.5 g/dL (3.4-5.0); ANION GAP 14.5 (8-16); CARBON DIOXIDE 25.8 mmol/L (21-32); CREATININE 0.7 mg/dL (0.6-1.3); FREE T4 (FREE THYROXINE) 0.74 ng/dL (0.76-1.46); POTASSIUM 3.3 mmol/L (3.5-5.1); THYROID STIMULATING HORMONE 0.28 uIU/mL (0.34-3.74); TOTAL BILIRUBIN 0.3 mg/dL (0.0-1.0)
--- NOTE | 2020-12-01 19:15 | NUR ---
Pt report given to Rosalia. Transfer of care at this time.
--- NOTE | 2020-12-01 19:16 | NUR ---
REPORT RECEIVED FROM CARYN. TRANSFER OF CARE AT THIS TIME.
--- NOTE | 2020-12-01 19:42 | NUR ---
pt is sitting up in bed. denies pain, states she just feels pressure. all needs met at this time. pt requested for both side rails to be down. bed is locked.
[2020-12-01 20:06] VITALS: BP 130/72
== END 2020-12-01 20:06 | disposition home or self-care (01) ==
LOC: MED 17:31
DX: R07.9 Chest pain, unspecified (principal); R06.02 Shortness of breath
CPT/HCPCS: 36415; 71045; 80053; 81002; 81025; 84439; 84443; 84484; 85025; 93005; 96372; 99285; J1885; Q0092

== ENCOUNTER 2021-02-22 22:51 | Emergency (ER) | payer OTHER ==
[~2021-02-22] VITALS: Ht 160 cm; Wt 97.5 kg
[2021-02-22 23:01] VITALS: BP 153/81
--- NOTE | 2021-02-22 23:31 | NUR ---
PT TAKEN TO BED 6
[2021-02-22] MEDS ORDERED: KETOROLAC 60 MG/2 ML VIAL IM ONE (23:50)
--- NOTE | 2021-02-22 23:50 | NUR ---
PATIENT BIB SELF, STATES SHE HAS ELBOW PAIN THAT RADIATES TO THE LOWER ARM. RATES PAIN 7/10 AND SHARP, HAS TAKEN IBUPROFEN AT HOME WITH NO RELIEF. PAIN STARTED YESTERDAY AFTER SHOPPING AT [employer] WHERE SHE STATES SHE LIFTED A HEAVY CASE OF WATER BOTTLES. PATIENT DENIES ANY SOB, CHEST PAIN, N/V. PHM: DM, HTN, HYPOTHYROID
--- NOTE | 2021-02-23 00:01 | NUR ---
Dr. Márquez examining patient.
[2021-02-23] MEDS ORDERED: IBUP-2213 PO (00:12)
[2021-02-23] MEDS ORDERED: ACET-8386 PO (00:12)
--- NOTE | 2021-02-23 00:20 | NUR ---
TORADOL IM ADMINISTERED, PATIENT TOLERATED WELL. WILL CONTINUE TO MONITOR. ALL SAFETY MEASURES IN PLACE.
[2021-02-23 01:15] VITALS: BP 139/87
--- NOTE | 2021-02-23 01:15 | NUR ---
Patient discharged with v/s stable. Written and verbal after care instructions given and explained. Patient alert, oriented and verbalized understanding of instructions. Ambulatory with steady gait. All questions addressed prior to discharge. ID band removed. Patient advised to follow up with PMD. Rx of HYDROCODONE/ACETAMINOPHEN, IBUPROFEN given. Patient educated on indication of medication including possible reaction and side effects. Opportunity to ask questions provided and answered.
== END 2021-02-23 01:15 | disposition home or self-care (01) ==
LOC: MED 22:51
DX: M25.522 Pain in left elbow (principal); E11.9 Type 2 diabetes mellitus without complications; I10 Essential (primary) hypertension; E03.9 Hypothyroidism, unspecified; Z79.899 Other long term (current) drug therapy; Z90.49 Acquired absence of other specified parts of digestive tract; Z98.890 Other specified postprocedural states
CPT/HCPCS: 73080; 96372; 99283; J1885

== ENCOUNTER 2021-05-09 21:54 | Emergency (ER) | payer OTHER ==
[~2021-05-09] VITALS: Ht 162.6 cm; Wt 92.1 kg
[~2021-05-09 21:54] MED LIST changes: +ACET-8386 PO
[2021-05-09 22:05] VITALS: BP 142/83
--- NOTE | 2021-05-09 22:14 | NUR ---
PT TO [facility] AMBULATORY
[2021-05-09] MEDS ORDERED: KETOROLAC 60 MG/2 ML VIAL IM ONE (23:05)
--- NOTE | 2021-05-09 23:30 | NUR ---
PT TAKEN TO XRAY
--- NOTE | 2021-05-09 23:39 | NUR ---
RECEIVED PATIENT FROM XRAY TO BED 4. PT HERE FOR RIGHT ELBOW PAIN NON TRAUMA RELATED. ON ASSESMENT PT IS AMBULATORY WITH STEADY GAIT, LIMITED RIGHT ARM MOVEMENT, POC RAN PRIOR TO TORADOL IM. AWAITING FOR XR RESULT
--- NOTE | 2021-05-10 | NUR ---
TORADOL 60MG IM GIVEN. PREGANCY POC NEGATIVE.
--- NOTE | 2021-05-10 01:32 | NUR ---
PT CLEARED FOR DC WITH DR. ZUNIGA. VS STABLE ON DC.
[2021-05-10 01:33] VITALS: BP 137/84
== END 2021-05-10 01:25 | disposition home or self-care (01) ==
LOC: MED 21:54
DX: M25.521 Pain in right elbow (principal); E11.9 Type 2 diabetes mellitus without complications; I10 Essential (primary) hypertension; E03.9 Hypothyroidism, unspecified; Z79.891 Long term (current) use of opiate analgesic; Z79.1 Long term (current) use of non-steroidal anti-inflammatories (NSAID); Z79.899 Other long term (current) drug therapy
CPT/HCPCS: 73080; 96372; 99283; J1885

== ENCOUNTER 2021-07-15 00:49 | Emergency (ER) | payer OTHER ==
[~2021-07-15] VITALS: Ht 160 cm; Wt 97.1 kg
[2021-07-15 01:02] VITALS: BP 150/88
--- NOTE | 2021-07-15 01:07 | NUR ---
pt sent to lobby, waiting for bed.
--- NOTE | 2021-07-15 02:10 | NUR ---
PT TAKEN TO ER BED 05
--- NOTE | 2021-07-15 02:32 | NUR ---
35 Y/O FEMALE BIBS, C/O BILATERAL PEDAL EDEMA X2 DAYS. PATIENT PRESENTS TO ED WITH SWOLLEN FEET, TINGLING IN THE TOES, ACHE IN HER FEET AND A HEAVINESS IN HER CALVES. DENIES N/V/D; SKIN IS PINK/WARM/DRY; AAOX4 WITH EVEN AND STEADY GAIT; LUNGS CLEAR BL; HR EVEN AND REGULAR; PT DENIES ANY FEVER, CP, SOB, OR COUGH AT THIS TIME; PATIENT STATES PAIN OF 5/10 AT THIS TIME; VSS; PATIENT POSITIONED FOR COMFORT; HOB ELEVATED; BEDRAILS UP X2; BED DOWN. ER MD MADE AWARE OF PT STATUS. HX: DM2, HTN, THYROID NKA MED: LISINOPRIL, LEVOTHYROXIN, METFORMIN
--- NOTE | 2021-07-15 02:45 | NUR ---
ER MD AT BEDSIDE ASSESSING PT
[2021-07-15] MEDS ORDERED: KETOROLAC 60 MG/2 ML VIAL IM ONE (02:50)
--- NOTE | 2021-07-15 02:52 | NUR ---
XRAY AT BEDSIDE
--- NOTE | 2021-07-15 03:08 | NUR ---
calibration laboratory technician at bedside
[2021-07-15 03:35] LABS: ANION GAP 12.6 (8-16); CARBON DIOXIDE 25.5 mmol/L (21-32); CREATININE 0.7 mg/dL (0.6-1.3); POTASSIUM 3.1 mmol/L (3.5-5.1)
[2021-07-15 03:41] LABS: BASOPHILS % (AUTO) 0.4 % (0.0-2.0); EOSINOPHILS # (AUTO) 0.1 K/uL (0-0.4); EOSINOPHILS % (AUTO) 1.9 % (0.0-4.0); HEMATOCRIT 28.8 % (36-48); HEMOGLOBIN 9.3 g/dL (12.0-16.0); LYMPHOCYTES # (AUTO) 3.6 K/uL (2.5-16.5); MEAN CORPUSCULAR HEMOGLOBIN 24 pg (27-31); MEAN CORPUSCULAR HGB CONC 32 g/dL (33-37); MEAN CORPUSCULAR VOLUME 73.2 fL (80-94); MONOCYTES # (AUTO) 0.5 K/uL (0.8-1.0); MONOCYTES % (AUTO) 6.5 % (1.7-9.3); NEUTROPHILS # (AUTO) 3.5 K/uL (1.8-7.7); NEUTROPHILS % (AUTO) 45.2 % (42.2-75.2); PLATELET COUNT (AUTO) 290 K/uL (140-450); RED BLOOD CELL COUNT(AUTO) 3.94 MIL/uL (4.20-5.40); RED CELL DISTRIBUTION WIDTH 17.8 % (11.6-13.7); WHITE BLOOD COUNT (AUTO) 7.8 K/uL (4.8-10.8)
[2021-07-15 05:08] VITALS: BP 128/76
--- NOTE | 2021-07-15 05:09 | NUR ---
Patient discharged with v/s stable. Written and verbal after care instructions given and explained. Patient verbalized understanding. Ambulatory with steady gait. All questions addressed prior to discharge. Advised to follow up with PMD. VSS, A/OX4, AMBULATORY, UNLABORED BREATHING, AND CALM DEMEANOR.
== END 2021-07-15 05:08 | disposition home or self-care (01) ==
LOC: MED 00:49
DX: D50.9 Iron deficiency anemia, unspecified (principal); E87.6 Hypokalemia; R60.0 Localized edema; E11.9 Type 2 diabetes mellitus without complications; I10 Essential (primary) hypertension; E03.9 Hypothyroidism, unspecified; Z79.899 Other long term (current) drug therapy
CPT/HCPCS: 36415; 71045; 80048; 83880; 84484; 85025; 93005; 96372; 99285; J1885; Q0092

== ENCOUNTER 2021-11-21 11:40 | Emergency (ER) | payer OTHER ==
[~2021-11-21] VITALS: Ht 162.6 cm; Wt 93.9 kg
[2021-11-21 12:00] VITALS: BP 131/63
--- NOTE | 2021-11-21 12:07 | NUR ---
PT AMBULATED TO BED 8 WITH STEADY GAIT
--- NOTE | 2021-11-21 13:46 | NUR ---
Patient discharged with v/s stable. Written and verbal after care instructions ABOUT LYMPHANGITIS given and explained. Patient verbalized understanding. Ambulatory with steady gait. All questions addressed prior to discharge. Advised to follow up with PMD.
== END 2021-11-21 13:46 | disposition home or self-care (01) ==
LOC: MED 11:40
DX: I88.8 Other nonspecific lymphadenitis (principal); I10 Essential (primary) hypertension; E03.9 Hypothyroidism, unspecified; E11.9 Type 2 diabetes mellitus without complications; Z79.4 Long term (current) use of insulin; Z79.899 Other long term (current) drug therapy; Z90.49 Acquired absence of other specified parts of digestive tract; Z98.890 Other specified postprocedural states
CPT/HCPCS: 99282

== ENCOUNTER 2022-01-26 05:00 | Emergency (ER) | payer OTHER ==
[~2022-01-26] VITALS: Ht 162.6 cm; Wt 95.3 kg
[2022-01-26 05:05] VITALS: BP 150/82
--- NOTE | 2022-01-26 05:05 | NUR ---
to bed ambulatory
--- NOTE | 2022-01-26 05:25 | NUR ---
Pt coming from home ambulatory with steady gait. Pt c/o dizziness and chest pressure that started abruptly this morning. VSS. Pt speaking in full sentences on RA. Denies n/v. Skin intact. NKA. Has hx of DM, HTN, and Hypothyroidism. Bed in lowest position.
--- NOTE | 2022-01-26 05:36 | NUR ---
20g IV placed on right wrist. blood drawn. 10cc NS flushed. No infiltration noted. Saline lock.
--- NOTE | 2022-01-26 05:40 | NUR ---
X-Ray being done at bedside.
--- NOTE | 2022-01-26 05:52 | NUR ---
Covid swab done and sent to lab.
[2022-01-26 05:59] LABS: BASOPHILS # (AUTO) 0.1 K/uL (0.00-0.22); BASOPHILS % (AUTO) 1.5 % (0.0-2.0); EOSINOPHILS # (AUTO) 0.1 K/uL (0-0.4); EOSINOPHILS % (AUTO) 1.9 % (0.0-4.0); HEMATOCRIT 30.7 % (36-48); HEMOGLOBIN 10.2 g/dL (12.0-16.0); LYMPHOCYTES # (AUTO) 3.9 K/uL (2.5-16.5); LYMPHOCYTES % (AUTO) 49.7 % (20.5-51.1); MEAN CORPUSCULAR HEMOGLOBIN 24 pg (27-31); MEAN CORPUSCULAR HGB CONC 33 g/dL (33-37); MEAN CORPUSCULAR VOLUME 72.8 fL (80-94); MONOCYTES # (AUTO) 0.4 K/uL (0.8-1.0); MONOCYTES % (AUTO) 5.4 % (1.7-9.3); NEUTROPHILS # (AUTO) 3.2 K/uL (1.8-7.7); NEUTROPHILS % (AUTO) 41.5 % (42.2-75.2); PLATELET COUNT (AUTO) 342 K/uL (140-450); RED BLOOD CELL COUNT(AUTO) 4.22 MIL/uL (4.20-5.40); RED CELL DISTRIBUTION WIDTH 15.9 % (11.6-13.7); WHITE BLOOD COUNT (AUTO) 7.8 K/uL (4.8-10.8)
[2022-01-26 06:31] LABS: ALBUMIN 3.4 g/dL (3.4-5.0); ANION GAP 18.4 (8-16); ASPARTATE AMINOTRANSFERASE 18 U/L (15-37); CARBON DIOXIDE 24.6 mmol/L (21-32); CHLORIDE 99 mmol/L (98-107); CREATININE 0.7 mg/dL (0.6-1.3); GFR ARICAN-AMERICAN 120 mL/min (>90); GLUCOSE 176 mg/dL (74-106); SODIUM SERUM 139 mmol/L (136-145); TOTAL BILIRUBIN 0.2 mg/dL (0.0-1.0); UREA NITROGEN, BLOOD 10 mg/dL (7-18)
[2022-01-26] MEDS ORDERED: POTASSIUM CHLORIDE 10 MEQ TABER PO ONE (06:35)
--- NOTE | 2022-01-26 07:27 | NUR ---
IV removed, catheter intact and site benign. Applied folded 4x4 gauze and tape to stop bleeding.
[2022-01-26 07:29] VITALS: BP 127/75
--- NOTE | 2022-01-26 07:29 | NUR ---
Patient discharged with v/s stable. Written and verbal after care instructions FOR HYPOKALEMIA AND PREVENTING IRON DEFICIENCYT ANEMIA given and explained. Patient verbalized understanding. Ambulatory with steady gait. All questions addressed prior to discharge. Advised to follow up with PMD.
== END 2022-01-26 07:29 | disposition home or self-care (01) ==
LOC: MED 05:00
DX: D64.9 Anemia, unspecified (principal); E87.6 Hypokalemia; R06.02 Shortness of breath; Z20.822 Contact with and (suspected) exposure to COVID-19; E11.9 Type 2 diabetes mellitus without complications; I10 Essential (primary) hypertension; Z98.890 Other specified postprocedural states; Z90.49 Acquired absence of other specified parts of digestive tract; Z86.39 Personal history of other endocrine, nutritional and metabolic disease; Z79.891 Long term (current) use of opiate analgesic; Z79.1 Long term (current) use of non-steroidal anti-inflammatories (NSAID); Z79.899 Other long term (current) drug therapy
CPT/HCPCS: 36415; 71045; 80053; 84484; 84702; 85025; 87426; 93005; 99285; Q0092

== ENCOUNTER 2022-04-14 13:56 | Emergency (ER) | payer OTHER ==
[~2022-04-14] VITALS: Ht 162.6 cm; Wt 96.6 kg
[~2022-04-14 13:56] MED LIST changes: -ACET-8386 PO; +ACET-8905 PO
[2022-04-14 14:06] VITALS: BP 149/92
[2022-04-14] MEDS ORDERED: ALBU0.0912 IH (15:18)
[2022-04-14] MEDS ORDERED: IBUP-2213 PO (15:18)
[2022-04-14] MEDS ORDERED: PROM118S5 PO (15:18)
--- NOTE | 2022-04-14 15:49 | NUR ---
Patient left without discharge paperwork.
--- NOTE | 2022-04-14 15:50 | NUR ---
The patient's care was reviewed and supervised by Elise Spear, RN, RN.
== END 2022-04-14 15:49 | disposition home or self-care (01) ==
LOC: MED 13:56
DX: J06.9 Acute upper respiratory infection, unspecified (principal); E03.9 Hypothyroidism, unspecified; I10 Essential (primary) hypertension; E11.9 Type 2 diabetes mellitus without complications; Z79.4 Long term (current) use of insulin; Z79.899 Other long term (current) drug therapy
CPT/HCPCS: 71045; 99283; Q0092

== ENCOUNTER 2022-08-13 20:31 | Emergency (ER) | payer OTHER ==
[~2022-08-13] VITALS: Ht 162.6 cm; Wt 90.7 kg
[~2022-08-13 20:31] MED LIST changes: +ALBU0.0912 IH; +PROM118S5 PO
--- NOTE | 2022-08-13 20:38 | NUR ---
PT TAKEN TO BED 11
[2022-08-13 20:46] VITALS: BP 148/86
[2022-08-13] MEDS ORDERED: KETOROLAC 30 MG/ML VIAL IVP ONE (21:00)
[2022-08-13] MEDS ORDERED: ONDANSETRON 4 MG/2 ML VIAL IVP ONE (21:00)
[2022-08-13 21:10] LABS: BASOPHILS # (AUTO) 0.1 K/uL (0.00-0.22); BASOPHILS % (AUTO) 0.6 % (0.0-2.0); EOSINOPHILS # (AUTO) 0.1 K/uL (0-0.4); EOSINOPHILS % (AUTO) 1.7 % (0.0-4.0); HEMOGLOBIN 9.9 g/dL (12.0-16.0); LYMPHOCYTES # (AUTO) 3.3 K/uL (2.5-16.5); LYMPHOCYTES % (AUTO) 38.2 % (20.5-51.1); MEAN CORPUSCULAR HEMOGLOBIN 22 pg (27-31); MEAN CORPUSCULAR HGB CONC 32 g/dL (33-37); MEAN CORPUSCULAR VOLUME 68.3 fL (80-94); MONOCYTES # (AUTO) 0.5 K/uL (0.8-1.0); MONOCYTES % (AUTO) 5.5 % (1.7-9.3); NEUTROPHILS # (AUTO) 4.7 K/uL (1.8-7.7); PLATELET COUNT (AUTO) 355 K/uL (140-450); RED BLOOD CELL COUNT(AUTO) 4.54 MIL/uL (4.20-5.40); RED CELL DISTRIBUTION WIDTH 16.3 % (11.6-13.7); WHITE BLOOD COUNT (AUTO) 8.7 K/uL (4.8-10.8)
[2022-08-13 21:25] LABS: ALBUMIN 3.6 g/dL (3.4-5.0); ANION GAP 13.6 (8-16); CARBON DIOXIDE 27.7 mmol/L (21-32); CREATININE 0.7 mg/dL (0.6-1.3); POTASSIUM 3.3 mmol/L (3.5-5.1); TOTAL BILIRUBIN 0.2 mg/dL (0.0-1.0)
[2022-08-13] MEDS ORDERED: NACL 0.9% 1,000 ML IV ONE (22:30)
[2022-08-13] MEDS ORDERED: POTASSIUM CHLORIDE 10 MEQ TABER PO ONE (22:30)
[2022-08-13] MEDS ORDERED: IBUP-2213 PO (23:54)
[2022-08-13] MEDS ORDERED: ONDA-188 PO (23:54)
[2022-08-14 00:05] VITALS: BP 128/78
== END 2022-08-14 00:09 | disposition home or self-care (01) ==
LOC: MED 20:31
DX: R07.9 Chest pain, unspecified (principal); E87.6 Hypokalemia; R11.0 Nausea; I10 Essential (primary) hypertension; E03.9 Hypothyroidism, unspecified; E11.9 Type 2 diabetes mellitus without complications; Z79.4 Long term (current) use of insulin; Z79.899 Other long term (current) drug therapy
CPT/HCPCS: 36415; 71045; 80053; 81025; 83880; 84484; 85025; 93005; 96361; 96374; 96375; 99285; J1885; J2405; J7030

== ENCOUNTER 2022-12-05 18:32 | Emergency (ER) | payer OTHER ==
[~2022-12-05] VITALS: Ht 165.1 cm; Wt 81.6 kg
[~2022-12-05 18:32] MED LIST changes: +ONDA-188 PO
[2022-12-05 18:54] VITALS: BP 136/75; PULSE 91; RESP 18; TEMP 98.3; O2SAT 98
[2022-12-05] MEDS ORDERED: NACL 0.9% 1,000 ML IV ONE (19:55)
[2022-12-05] MEDS ORDERED: LOPE1TAB14 PO (20:04)
[2022-12-05] MEDS ORDERED: ONDA8TAB87 PO (21:33)
[2022-12-05 21:37] VITALS: BP 127/68; PULSE 82; RESP 18; TEMP 97.6; O2SAT 98
== END 2022-12-05 21:36 | disposition home or self-care (01) ==
LOC: MED 18:32
DX: R19.7 Diarrhea, unspecified (principal); R10.84 Generalized abdominal pain; I10 Essential (primary) hypertension; E11.9 Type 2 diabetes mellitus without complications; E03.9 Hypothyroidism, unspecified; Z79.899 Other long term (current) drug therapy
CPT/HCPCS: 96360; 99283; J7030

== ENCOUNTER 2023-04-23 19:30 | Emergency (ER) | payer OTHER ==
[~2023-04-23] VITALS: Ht 162.6 cm; Wt 88.9 kg
[~2023-04-23 19:30] MED LIST changes: +LOPE1TAB14 PO; +ONDA8TAB87 PO
[2023-04-23 19:53] VITALS: BP 137/81; PULSE 90; RESP 16; TEMP 97.8; O2SAT 100
[2023-04-23] MEDS ORDERED: FLUORESCEIN OPTH STRIP 1 MG OP ONE (21:50)
[2023-04-23] MEDS ORDERED: PROPARACAINE 0.5% OPTH 15 ML BTL OP ONE (21:50)
[2023-04-23] MEDS ORDERED: ONDANSETRON 4 MG ODT PO ONE (22:10)
[2023-04-23 22:26] VITALS: BP 129/77; PULSE 92; RESP 15; O2SAT 100
[2023-04-23] MEDS ORDERED: ONDA-188 SL (23:22)
== END 2023-04-24 00:19 | disposition home or self-care (01) ==
LOC: MED 19:30
DX: H53.8 Other visual disturbances (principal); E11.9 Type 2 diabetes mellitus without complications; I10 Essential (primary) hypertension; Z87.448 Personal history of other diseases of urinary system; Z86.39 Personal history of other endocrine, nutritional and metabolic disease; Z79.899 Other long term (current) drug therapy; Z79.1 Long term (current) use of non-steroidal anti-inflammatories (NSAID)
CPT/HCPCS: 70450; 99284; Q0162

== ENCOUNTER 2023-11-08 14:43 | Emergency (ER) | payer OTHER ==
[~2023-11-08] VITALS: Ht 162.6 cm; Wt 90.5 kg
[~2023-11-08 14:43] MED LIST changes: +CYCL-711 PO; -LISI-486 PO; +LISI-951 PO; +ONDA-188 SL
[2023-11-08 14:53] VITALS: BP 136/74; PULSE 87; RESP 18; TEMP 97.6; O2SAT 99
[2023-11-08 16:22] LABS: BASOPHILS # (AUTO) 0.1 K/uL (0.00-0.22); BASOPHILS % (AUTO) 0.9 % (0.0-2.0); EOSINOPHILS # (AUTO) 0.1 K/uL (0-0.4); EOSINOPHILS % (AUTO) 1.1 % (0.0-4.0); HEMATOCRIT 36.9 % (36-48); HEMOGLOBIN 12.3 g/dL (12.0-16.0); LYMPHOCYTES % (AUTO) 31.7 % (20.5-51.1); MEAN CORPUSCULAR HEMOGLOBIN 29 pg (27-31); MEAN CORPUSCULAR HGB CONC 33 g/dL (33-37); MONOCYTES # (AUTO) 0.6 K/uL (0.8-1.0); MONOCYTES % (AUTO) 6.5 % (1.7-9.3); NEUTROPHILS # (AUTO) 5.6 K/uL (1.8-7.7); NEUTROPHILS % (AUTO) 59.8 % (42.2-75.2); PLATELET COUNT (AUTO) 221 K/uL (140-450); RED BLOOD CELL COUNT(AUTO) 4.29 MIL/uL (4.20-5.40); RED CELL DISTRIBUTION WIDTH 14.2 % (11.6-13.7); WHITE BLOOD COUNT (AUTO) 9.3 K/uL (4.8-10.8)
[2023-11-08 16:30] LABS: ANION GAP 15.7 (8-16); CALCIUM 9.1 mg/dL (8.5-10.1); CARBON DIOXIDE 26.9 mmol/L (21-32); CREATININE 0.6 mg/dL (0.6-1.3); POTASSIUM 3.6 mmol/L (3.5-5.1)
[2023-11-08] MEDS ORDERED: CYCL-654 PO (17:33)
[2023-11-08] MEDS ORDERED: ACET-10509 PO (17:33)
[2023-11-08 17:46] VITALS: BP 136/74; PULSE 87; RESP 18; TEMP 97.6; O2SAT 99
== END 2023-11-08 17:44 | disposition home or self-care (01) ==
LOC: MED 14:43
DX: R07.9 Chest pain, unspecified (principal); R11.2 Nausea with vomiting, unspecified; R42 Dizziness and giddiness; R20.0 Anesthesia of skin; R20.2 Paresthesia of skin; E11.9 Type 2 diabetes mellitus without complications; I10 Essential (primary) hypertension; E03.9 Hypothyroidism, unspecified; Z87.448 Personal history of other diseases of urinary system; Z86.73 Personal history of transient ischemic attack (TIA), and cerebral infarction without residual deficits; Z79.899 Other long term (current) drug therapy
CPT/HCPCS: 36415; 71045; 80048; 84484; 85025; 93005; 99285